=== PATIENT | female | born 1965 | race Caucasian/White ===

== ENCOUNTER 2023-06-03 07:19 | Outpatient (CLI) | payer OTHER | END 2023-06-03 07:20 | disposition home or self-care (01) | LOC: CSHCP 07:19 | PROVIDERS: ATTEND Internal Medicine Critical Care Medicine | DX: J84.10 Pulmonary fibrosis, unspecified (principal); J98.4 Other disorders of lung | CPT/HCPCS: 94010; 94664; 94726; 94729; 94760 ==